=== PATIENT | female | born 1960 ===

== ENCOUNTER 2022-03-10 10:08 | Day surgery (SDC) | payer OTHER ==
[~2022-03-10 10:08] MED LIST: Acetaminophen 325 MG Tab PO SCH; Lactated Ringers 1,000 ML IV SCH; Lidocaine 1%/Sod Bicarbonate in NS 8.4% 1 ML Syringe IDERM PRN; Morphine 8 MG, EPINEPHrine 0.3 MG, Cefuroxime 750 MG, Ketorolac 30 MG, Sodium Chloride ... PRN; Pregabalin 25 MG Cap PO SCH; Sodium Chloride 0.9% 10 ML Syringe FLUSH PRN; Sodium Chloride 0.9% 10 ML Syringe FLUSH SCH; oxyCODONE ER 10 MG TAB.ER PO SCH
[2022-03-10] MEDS ORDERED: Vancomycin 1 GM SDV ONE (10:10)
[2022-03-10] MEDS ORDERED: Propofol 200 MG/20 ML SDV ONE (11:13)
[2022-03-10] MEDS ORDERED: fentaNYL 100 MCG/2 ML SDV ONE (11:14)
[2022-03-10] MEDS ORDERED: Ondansetron 4 MG/2 ML SDV ONE (11:18)
[2022-03-10] MEDS ORDERED: ceFAZolin 2 GM Vial ONE (11:20)
[2022-03-10] MEDS ORDERED: fentaNYL 100 MCG/2 ML SDV IVPUSH PRN (12:47)
[2022-03-10] MEDS ORDERED: HYDROmorphone 0.5 MG/0.5 ML Syringe IVPUSH PRN (12:47)
[2022-03-10] MEDS ORDERED: Ondansetron 4 MG/2 ML SDV IVPUSH PRN (12:47)
[2022-03-10] MEDS ORDERED: oxyCODONE 5 MG Tab PO PRN (14:25)
== END 2022-03-10 17:40 | disposition home or self-care (01) ==
LOC: JD.SDS 10:08
PROVIDERS: ATTEND Orthopaedic Surgery
DX: M16.11 Unilateral primary osteoarthritis, right hip (principal); K21.9 Gastro-esophageal reflux disease without esophagitis; I10 Essential (primary) hypertension; E03.9 Hypothyroidism, unspecified; M85.80 Other specified disorders of bone density and structure, unspecified site; E78.00 Pure hypercholesterolemia, unspecified; G60.8 Other hereditary and idiopathic neuropathies; Z79.899 Other long term (current) drug therapy; Z98.890 Other specified postprocedural states; Z90.49 Acquired absence of other specified parts of digestive tract; Z91.018 Allergy to other foods
CPT/HCPCS: 27130; 73501; 97110; 97116; 97161; A9270; C1713; C1776; J0171; J0690; J0697; J1885; J2270; J2405; J2704; J3010; J3370; J7120; 01214